=== PATIENT | male | born 1980 | race African-American/Black ===

== ENCOUNTER 2016-11-10 08:15 | Emergency (ER) | payer OTHER | END 2016-11-10 09:27 | disposition home or self-care (01) | LOC: CED 08:15 | DX: R10.11 Right upper quadrant pain (principal); F17.200 Nicotine dependence, unspecified, uncomplicated; Z98.890 Other specified postprocedural states | CPT/HCPCS: 99284 ==

== ENCOUNTER 2016-11-15 07:56 | Emergency (ER) | payer OTHER ==
--- NOTE | ~2016-11-15 | US67 ---
[facility] A Service of [facility] RADIOLOGY TEXT RESULTS PATIENT: IGNACIO ESCOBAR LOCATION: [place] : [birth year] UNIT #: [id number] AGE: [address]: Valeriano Barber SEX: M ORDER DR: [id number] [place], [place] [address] [id number] MR#: [id number] Acc #: [id number] NAME: IGNACIO ESCOBAR : 1980 SEX: M STUDY DATE/TIME: 11/15/2016 9:35 UNIT: [place] ROOM: STUDY DESCRIPTION: US Gallbladder Attending Physician: Valeriano Barber Ordering Physician: Valeriano Barber Primary Care Physician: Primary Care Physician No MEDICAL IMAGING REPORT This report is preliminary unless electronic signature is present EXAM Gallbladder ultrasound, 11/15/2016. HISTORY Right upper quadrant right flank pain for approximately 2 weeks. COMPARISON None FINDINGS The pancreas has normal sonographic appearance. Liver demonstrates normal homogeneous echotexture without focal suspicious abnormality. Portal vein is patent. Intrahepatic IVC has an unremarkable dangelo-scale appearance. Liver size is normal, 12 cm in long axis. Right kidney measures 11.2 cm in length without focal cortical lesion, shadowing stone or hydronephrosis. Common bile duct caliber is normal, 3 mm. No intrahepatic biliary ductal dilation is seen. Gallbladder is free of shadowing stone, sludge, wall thickening or pericholecystic fluid. IMPRESSION Normal gallbladder ultrasound. Dictated by... Mai Watkins M.D. THIS IS AN ELECTRONICALLY VERIFIED REPORT Mai Watkins M.D. at 11/18/2016 1:22 PM KALANI/flakito TD: 11/15/2016 12:01 JOB #: [id number] [facility] A Service of [facility] RADIOLOGY TEXT RESULTS PATIENT: IGNACIO ESCOBAR LOCATION: [place] : 82 UNIT #: [id number] AGE: [address]: Valeriano Barber SEX: M ORDER DR: MEDICAL IMAGING REPORT Page 1 of 1 COPY
[2016-11-15 09:18] LABS: BASOPHIL% 0.7 % (0-2.5); EOSINOPHIL# 0.1 X10e3 (0-0.7); HEMATOCRIT 39.3 % (38.0-50.0); HEMOGLOBIN 12.8 gm/dL (13.0-16.0); LYMPHOCYTE# 1.5 X10e3 (1.0-3.5); LYMPHOCYTE% 27.7 % (17.0-45.0); MEAN CELL VOLUME 90.5 FL (83-96); MEAN CORPUSCULAR HEMOGLOBIN 29.6 PG (28-34); MEAN CORPUSCULAR HGB CONC 32.7 g/dL (30-36); MONOCYTE# 0.6 X10e3 (0-1.0); MONOCYTE% 10.5 % (3.0-12.0); NEUTROPHIL# 3.1 X10e3 (1.5-7.1); NEUTROPHIL% 59.1 % (40-75); PLATELET COUNT 213 X10e3 (140-420); RED BLOOD COUNT 4.34 X10e (3.90-5.60); RED CELL DISTRIBUTION WIDTH 12.8 % (11.0-15.5); WHITE BLOOD COUNT 5.2 X10e3 (4.0-10.5)
[2016-11-15 09:19] LABS: DIFF IND NO
[2016-11-15 09:53] LABS: ALBUMIN SERUM 3.9 g/dL (3.5-5.0); BILIRUBIN, DIRECT 0.1 mg/dL (0.0-0.2); BILIRUBIN,INDIRECT 0.9 mg/dL (0.0-0.9); BUN/CREATININE RATIO 13.33; CALCIUM SERUM 8.9 mg/dL (8.4-10.2); CREATININE SERUM 0.9 mg/dL (0.6-1.4); GLOM FILT RATE Estimated 127.8 mL/min (>60); PROTEIN TOTAL SERUM 7.1 g/dL (6.0-8.3)
[2016-11-15 10:01] LABS: URINE SOURCE CLEAN CATCH
[2016-11-15 10:27] LABS: URINE APPEARANCE CLEAR; URINE BILIRUBIN NEG (NEG); URINE BLOOD NEG (NEG); URINE COLOR YELLOW; URINE GLUCOSE NEG (NEG); URINE KETONE 2+ (NEG); URINE LEUKOCYTE ESTERASE TRACE (NEG); URINE NITRATE NEG (NEG); URINE PROTEIN TRACE (NEG); URINE SPECIFIC GRAVITY 1.027 (1.003-1.035)
[2016-11-15 10:30] LABS: U HYALINE CASTS AUWI 0-2 /[LPF]; URINE BACTERIA AUWI NEG (NEGATIVE); URINE SQUAMOUS EPITHELIAL CELL NONE SEEN /[HPF]; UWBCS1 AUWI 0-2 (0-5)
[2016-11-15 11:14] LABS: CULTURE INDICATED? NO
[2016-11-15 11:16] LABS: URBCS1 AUWI 0-2 /[HPF] (0-2)
== END 2016-11-15 10:47 | disposition home or self-care (01) ==
LOC: CED 07:56
PROVIDERS: Nurse Practitioner
DX: K21.9 Gastro-esophageal reflux disease without esophagitis (principal); F17.210 Nicotine dependence, cigarettes, uncomplicated; Z86.69 Personal history of other diseases of the nervous system and sense organs
CPT/HCPCS: 36415; 76705; 80048; 80076; 81003; 82150; 83690; 85025; 99284